=== PATIENT | male | born 1990 | race Caucasian/White ===

== ENCOUNTER → 2020-11-02 16:02 | Outpatient (BNVA) | payer OTHER, SELFPAY | PROVIDERS: PCP Family Medicine; Visit Provider Nurse Practitioner Family | DX: Z20.828 Contact with and (suspected) exposure to other viral communicable diseases (principal) | CPT/HCPCS: 87635 ==

== ENCOUNTER 2022-03-30 20:21 | Emergency (ER) | payer BC, SELFPAY ==
[2022-03-30 20:49] VITALS: BP 121/81; PULSE 68; RESP 16; TEMP 36.3; O2SAT 99; BMI 22.9
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
--- NOTE | 2022-03-30 20:59 | XRR_ITS ---
PROCEDURE INFORMATION: Exam: XR Right Shoulder Exam date and time: 03/30/2022 9:39 PM Age: 31 years old Clinical indication: Pain; Shoulder; Right; Additional info: Fall TECHNIQUE: Imaging protocol: XR Right shoulder. Views: 2 or more views. COMPARISON: CR Shoulder 2+ views RIGHT* [id number] 07/14/2015 8:34 PM FINDINGS: Bones/joints: Normal. Soft tissues: Normal. XR/XR shoulder RT min 2V* [id number] IMPRESSION: No acute findings.
--- NOTE | 2022-03-30 20:59 | XRR_ITS ---
PROCEDURE INFORMATION: Exam: XR Right Knee Exam date and time: 03/30/2022 9:39 PM Age: 31 years old Clinical indication: Pain; Knee; Right; Additional info: Fall TECHNIQUE: Imaging protocol: XR Right knee. Views: 1 or 2 views. COMPARISON: No relevant prior studies available. FINDINGS: Bones/joints: Normal. Soft tissues: Normal. XR/XR knee RT 1-2V [id number] IMPRESSION: No acute findings.
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
[2022-03-30] MEDS: neomycin-poly-bacitracin oint 28 gm 1 APPLIC TOPICAL (23:14)
[2022-03-30] MEDS: cephALEXin 500 mg Capsule PO (23:15)
[2022-03-30] MEDS: acetaminophen 500 mg Tablet 1000 MG PO (23:15)
[2022-03-30] MEDS: ondansetron 2 mg/ML SDV 2 mL 4 MG IM (23:35)
[2022-03-31 00:04] VITALS: BP 103/69; PULSE 71; RESP 18; TEMP 36.4; O2SAT 95
--- NOTE | 2022-03-31 13:20 | DCPLANNER ---
Addendum entered by Josey Mullins 06/14/22 17:28: Patient had a follow up appointment scheduled with ortho - patient did attend appointment. Addendum entered by Josey Mullins 04/01/22 12:51: Patient has a follow up appointment scheduled for Tuesday, April 05, 2022 at 9:[address] Gomez at ortho. Clinic will call patient with appointment information. Original Note: adult education manager had message to schedule a follow up appointment for patient with ortho. adult education manager sent patients information to the front office staff at ortho. Patients information will be printed and reviewed. Clinic will call patient with appointment information.
== END 2022-03-31 00:05 | disposition home or self-care (01) ==
PROVIDERS: Emergency Provider Physician Assistant; PCP Family Medicine
DX: S40.211A Abrasion of right shoulder, initial encounter (principal); S50.312A Abrasion of left elbow, initial encounter; V86.55XA Driver of 3- or 4- wheeled all-terrain vehicle (ATV) injured in nontraffic accident, initial encounter; M25.561 Pain in right knee
CPT/HCPCS: 70450; 73030; 73560; 96372; 99284; J2405

== ENCOUNTER 2022-06-05 18:09 | Emergency (ER) | payer OTHER, SELFPAY ==
[2022-06-05 18:32] VITALS: BP 110/69; PULSE 96; RESP 16; TEMP 36.7; O2SAT 97; BMI 21.6
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
[2022-06-05 20:16] LABS: HIV 1 & 2 Antibody Non-Reactive (Non-Reactiv); HIV 1 & 2 Antigen Non-Reactive (Non-Reactiv)
[2022-06-05 20:57] LABS: Hepatitis A Antibody IgM Non-Reactive (Nonreactive); Hepatitis B Core IgM Non-Reactive (Nonreactive); Hepatitis B Surface Antigen Non-Reactive (Nonreactive); Hepatitis C Virus Antibody Non-Reactive (Nonreactive)
== END 2022-06-05 19:43 | disposition home or self-care (01) ==
PROVIDERS: Emergency Provider Nurse Practitioner Family; PCP Family Medicine
DX: Z77.21 Contact with and (suspected) exposure to potentially hazardous body fluids (principal); Y99.0 Civilian activity done for income or pay
CPT/HCPCS: 80074; 87806; 99283

== ENCOUNTER → 2022-08-24 08:44 | Outpatient (BNVA) | payer OTHER, SELFPAY | PROVIDERS: PCP Family Medicine; Visit Provider Family Medicine | DX: Z77.21 Contact with and (suspected) exposure to potentially hazardous body fluids (principal) | CPT/HCPCS: 86705; 86706; 86709; 86803; 87340; 87806 ==

== ENCOUNTER 2022-11-22 08:36 | Outpatient (CLI) | payer BC, SELFPAY ==
--- NOTE | 2022-11-22 08:48 | MR_ITS ---
WS: [id number] MRI NECK WITH CONTRAST TECHNIQUE: Noncontrast axial T1, axial T2 FSE fat sat, coronal T2 fat sat, coronal T1, coronal T1 fat sat, sagittal T2 fat sat, plus contrast enhanced coronal, sagittal, and axial T1 fat sat images obta ined. CLINICAL INFORMATION: NEOPLASM OF UNCERTAIN BEHAVIOR OF TONGUE COMPARISON: None. FINDINGS: Enhancing lesion involving LEFT anterior tongue measuring 1.5 x 1.3 CM. Associated T2 hyperintensity. No significant atrophy. Enhancing lesion involves LEFT genioglossus. Normal posterior tongue and ton schuyler base. Normal posterior nasopharynx. Parotid glands are normal. Normal submandibular glands. Normal palatine tonsils. Normal parapharyngeal fat. No evidence of supraglottic or glottic mass. Normal piriform sin uses. Normal subglottic airway. Enlarged LEFT jugulodigastric lymph node at the angle of the mandible.This measures 2.3 x 1.5 x 3.5 C M. No other visualized enlarged cervical lymph nodes. Small retention cysts in the maxillary sinuses. Normal visualized posterior fossa. Normal vascular flow voids at the skull base. Normal signal in th e cervical cord. No high-grade central canal stenosis. Small LEFT pericentral protrusion at T2-T3 par tially visualized. MR/MR orbit face neck wo/w* [id number] IMPRESSION: 1. Enhancing lesion involving the anterior tongue involving the genioglossus m easuring 1.5 x 1.3 cm with associated T2 signal abnormality. 2. Posterior tongue and base of tongue are normal in appearance. 3. Enlarged LEFT jugulodigastric lymph node at the angle of the mandible.This measures 2.3 x 1.5 x 3.5 CM. AP by transverse by craniocaudal. This can be furt her evaluated with PET/CT. No other enlarged cervical lymph nodes. 4. A few retention cysts in the maxillary sinuses. 5. No other suspicious findings.
== END 2022-11-22 08:37 | disposition home or self-care (01) ==
PROVIDERS: Visit Provider Specialist
DX: D37.02 Neoplasm of uncertain behavior of tongue (principal)
CPT/HCPCS: 70543; A9577